=== PATIENT | female | born 1995 | race Caucasian/White ===

== ENCOUNTER 2020-02-29 00:05 | Emergency (ER) | payer SELFPAY ==
[~2020-02-29] VITALS: Ht 161.3 cm; Wt 59.0 kg
--- NOTE | 2020-02-29 00:13 | NUR ---
PATIENT CAME TO ER BED 1 C/O MID-BACK PAIN SINCE WEDNESDAY (02/25/2020). PATIENT DENIES PAIN UPON URINATION. PATIENT STATES THAT IT HAS BEEN GETTING PROGRESSIVELY WORSE. PATIENT IS AAOX4. NO SOB. BREATHING EVENLY AND UNLABORED ON ROOM AIR. PATIENT IS AMBULATORY.
[2020-02-29] MEDS ORDERED: KETOROLAC TROMETHAMINE INJ 60 MG/2 ML VIAL IM ONE (00:34)
[2020-02-29] MEDS ORDERED: DEXAMETHASONE SOD PHOSPHATE 10 MG/ML VIAL ONE (00:35)
[2020-02-29] MEDS ORDERED: CARISOPRODOL 350 MG TABLET ONE (00:35)
[2020-02-29 00:38] LABS: APPEARANCE,URINE SL CLOUDY (CLEAR); BILIRUBIN,URINE NEGATIVE (NEGATIVE); BLOOD, URINE TRACE Ery/uL (NEGATIVE); COLOR,URINE YELLOW (YELLOW); KETONES,URINE NEGATIVE (NEGATIVE); LEUKOCYTE ESTERASE ,URINE MODERATE (NEGATIVE); NITRITE, URINE NEGATIVE (NEGATIVE); PH,URINE 6.5 (5.0-8.0); PROTEIN,URINE NEGATIVE (NEGATIVE); UGLUCOSE NEGATIVE (NEGATIVE); UROBILINOGEN,URINE 0.2 EU/dL (0.2)
[2020-02-29] MEDS: CARISOPRODOL 350 MG TABLET PO ONE (00:40)
[2020-02-29 00:43] LABS: BACTERIA,URINE Few /HPF (None Seen); SQUAMOUS EPITHELIAL CELL,UR Many /HPF (None Seen); WBC,URINE TOO NUMEROUS TO COUN /HPF (0-3)
[2020-02-29] MEDS: DEXAMETHASONE SOD PHOSPHATE 4 MG/ML VIAL IM ONE (00:55)
[2020-02-29] MEDS: KETOROLAC TROMETHAMINE INJ 60 MG/2 ML VIAL IM ONE (00:56)
--- NOTE | 2020-02-29 02:02 | NUR ---
Patient discharged to home in stable condition. Written and verbal after care instructions given. Patient verbalizes understanding of instruction.
[2020-02-29 02:06] VITALS: BP 132/76
== END 2020-02-29 02:06 | disposition home or self-care (01) ==
LOC: ER 00:09
DX: S39.012A Strain of muscle, fascia and tendon of lower back, initial encounter (principal); N39.0 Urinary tract infection, site not specified; X58.XXXA Exposure to other specified factors, initial encounter; Y93.89 Activity, other specified; Y92.89 Other specified places as the place of occurrence of the external cause; Y99.8 Other external cause status
CPT/HCPCS: 72131; 81001; 84703; 87086; 96372 ×2; 99284; J1100; J1885; 81000-TC